=== PATIENT | female | born 1985 | race African-American/Black ===

== ENCOUNTER 2023-01-02 09:40 | Emergency (ER) | payer OTHER ==
[~2023-01-02] VITALS: Ht 170.2 cm; Wt 84.4 kg
[2023-01-02] MEDS ORDERED: GLUMETZA1000 MG (09:57)
[2023-01-02] MEDS ORDERED: XYZAL5 MG PO (12:01)
== END 2023-01-02 12:07 | disposition home or self-care (01) ==
LOC: ER 09:40
DX: T78.49XA Other allergy, initial encounter (principal); X58.XXXA Exposure to other specified factors, initial encounter; R53.81 Other malaise; E11.9 Type 2 diabetes mellitus without complications; Z88.9 Allergy status to unspecified drugs, medicaments and biological substances; Z88.6 Allergy status to analgesic agent

== ENCOUNTER 2023-06-09 08:26 | Emergency (ER) | payer OTHER ==
[~2023-06-09] VITALS: Ht 170.2 cm; Wt 86.2 kg
[~2023-06-09 08:26] MED LIST: GLUMETZA1000 MG; XYZAL5 MG PO
[2023-06-09 09:40] LABS: HEMATOCRIT 40.4 % (36.0-45.00); HEMOGLOBIN 13.3 g/dL (12.0-15.00); MEAN CELL VOLUME 88.3 fL (80.00-100.00); MEAN CORPUSCULAR HGB CONC 32.8 g/dl (32.0-36.0); PLATELET COUNT 335 K/uL (150-450); RED BLOOD COUNT 4.58 M/uL (4.00-6.00)
[2023-06-09 10:00] LABS: AMYLASE 43 U/L (25-115); LIPASE 37 U/L (13-75)
== END 2023-06-09 11:35 | disposition home or self-care (01) ==
LOC: ER 08:26
PROVIDERS: Emergency Medicine
DX: R10.9 Unspecified abdominal pain (principal)